=== PATIENT | male | born 1955 | race Caucasian/White ===

== ENCOUNTER 2017-04-25 10:27 | Day surgery (SDC) | payer BC ==
[~2017-04-25] VITALS: Ht 177.8 cm; Wt 97.7 kg
[~2017-04-25 10:27] MED LIST: BUME1TAB21 PO; CARV3.122 PO; DIGO250T PO; HYDR-3240 PO; LISI5TAB7 PO; POTA20TA6 PO; RIVA20TA PO; VERA120T74 PO
[2017-04-25 10:53] VITALS: BP 115/78
[2017-04-25] MEDS ORDERED: SODIUM CHLORIDE 0.9% 1,000 ML IV ONE (11:00)
[2017-04-25] MEDS ORDERED: CARV3.1212 PO (11:01)
[2017-04-25] MEDS ORDERED: SIMV40TA3 PO (11:01)
[2017-04-25] MEDS ORDERED: WARF10TA6 PO (11:01)
[2017-04-25] MEDS ORDERED: PROPOFOL 10 MG/ML, 20ML ONE (12:07)
== END 2017-04-25 13:59 ==
LOC: CACL 10:27
PROVIDERS: ATTEND Internal Medicine Cardiovascular Disease
DX: I34.0 Nonrheumatic mitral (valve) insufficiency (principal); I07.1 Rheumatic tricuspid insufficiency; I48.91 Unspecified atrial fibrillation; I42.9 Cardiomyopathy, unspecified; I47.2 Ventricular tachycardia; I10 Essential (primary) hypertension; Z86.711 Personal history of pulmonary embolism; Z95.810 Presence of automatic (implantable) cardiac defibrillator
CPT/HCPCS: 93312; 93321; 93325; J2704

== ENCOUNTER → 2017-05-28 | Outpatient (CLI) | payer BC ==
[~2017-05-28] MED LIST changes: +CARV3.1212 PO; +REGADENOSON 0.4 MG/5 ML SYRINGE ONE; +SIMV40TA3 PO; +WARF10TA6 PO
== END | disposition home or self-care (01) ==
LOC: CFH 11:27
PROVIDERS: ATTEND Internal Medicine Cardiovascular Disease
DX: R06.02 Shortness of breath (principal); Z95.810 Presence of automatic (implantable) cardiac defibrillator
CPT/HCPCS: 78452; 93017; A9502; J2785

== ENCOUNTER → 2017-07-23 | Outpatient (CLI) | payer BC ==
[~2017-07-23] MED LIST changes: +ATOR40TA78 PO; +LISI1TAB7 PO; +OMNIPAQUE 350 MG/ML, 100ML BOTTLE ONE; -REGADENOSON 0.4 MG/5 ML SYRINGE ONE; +WARF-36 PO; +WARF10TA43 PO; -WARF10TA6 PO; +WARF3TAB52 PO
== END | disposition home or self-care (01) ==
LOC: CFH 12:00
PROVIDERS: ATTEND Thoracic Surgery (Cardiothoracic Vascular Surgery)
DX: Z01.810 Encounter for preprocedural cardiovascular examination (principal); I71.9 Aortic aneurysm of unspecified site, without rupture
CPT/HCPCS: 71275; 82565; Q9967

== ENCOUNTER 2017-08-23 04:36 | Inpatient (IN) | payer BC ==
[2017-08-22 14:17] LABS: MICROSCOPIC NOT IND
[2017-08-22 14:32] LABS: BASOPHILS # (AUTO) 0.05 x10^3/uL (0-0.1); BASOPHILS % (AUTO) 1 % (0-1); EOSINOPHILS # (AUTO) 0.08 x10^3/uL (0-0.4); EOSINOPHILS % (AUTO) 1 % (1-7); LYMPHOCYTES # (AUTO) 2.15 x10^3/uL (1-3.4); LYMPHOCYTES % (AUTO) 32 % (22-44); MD NO; MEAN CORPUSCULAR HEMOGLOBIN 32.1 pg (27.5-34.5); MEAN CORPUSCULAR VOLUME 94.2 fL (81-97); MEAN PLATELET VOLUME 9.6 fL (7.4-10.4); MONOCYTES # (AUTO) 0.63 x10^3/uL (0.2-0.8); MONOCYTES % (AUTO) 10 % (2-9); NEUTROPHILS # (AUTO) 3.76 x10^3/uL (1.8-6.8); NEUTROPHILS % (AUTO) 56 % (42-75); PLATELET COUNT 234 x10^3/uL (130-400); RED BLOOD COUNT 4.73 x10^6/uL (4.38-5.82); RED CELL DISTRIBUTION WIDTH 13.5 % (9.4-14.8)
[2017-08-22 14:34] LABS: INTERNATIONAL NORMALIZED RATIO 1.24 (0.93-1.1); PROTHROMBIN TIME 12.7 Seconds (9.6-11.5)
[2017-08-22 14:36] LABS: ALBUMIN 3.6 g/dL (3.4-5.0); ANION GAP 5 mmol/L (5-15); CALCIUM 8.5 mg/dL (8.5-10.1); CHLORIDE 107 mmol/L (98-107); CREATININE 1.09 mg/dL (0.7-1.3)
[2017-08-22 14:42] LABS: ALANINE AMINOTRANSFERASE 35 U/L (12-78); ALKALINE PHOSPHATASE 69 U/L (45-117); BILIRUBIN,TOTAL 1.1 mg/dL (0.2-1.0)
[~2017-08-23] VITALS: Ht 177.8 cm; Wt 100.8 kg
[~2017-08-23 04:36] MED LIST changes: -OMNIPAQUE 350 MG/ML, 100ML BOTTLE ONE
[2017-08-23] MEDS ORDERED: CHLORHEXIDINE 15 ML BOTTLE MM SCH (05:00)
[2017-08-23] MEDS ORDERED: INSULIN LISPRO 100 UNITS/ML, PEN SQ-INSULIN SCH (05:00)
[2017-08-23 05:49] VITALS: BP_SYST 110; BP_SYST 114; BP_DIAS 73; BP_DIAS 75
[2017-08-23] MEDS: MUPIROCIN OINT 2%, 22GM TP SCH ×2 (05:58→21:00)
[2017-08-23 06:20] VITALS: BP 112/80
[2017-08-23] MEDS ORDERED: MIDAZOLAM 10MG/2 ML ONE (06:39)
[2017-08-23] MEDS ORDERED: SUFentanil 50 MCG/ML, 5ML ONE (06:39)
[2017-08-23] MEDS ORDERED: REGULAR INSULIN 62.5 UNITS in SODIUM CHLORIDE 0.9% 249.375 ML IV PRN ×2 (07:30→12:03)
[2017-08-23] MEDS ORDERED: EPINEPHRINE 2 MG in SODIUM CHLORIDE 0.9% 248 ML IV SCH (07:30)
[2017-08-23] MEDS ORDERED: VANCOMYCIN 1,400 MG in SODIUM CHLORIDE 0.9% 250 ML IV PRN (07:30)
[2017-08-23] MEDS ORDERED: MANNITOL PMX 20% 500 ML IVPB PRN (07:30)
[2017-08-23] MEDS ORDERED: POTASSIUM CHLORIDE 80 MEQ, SODIUM BICARBONATE 8.4% 10 MEQ, MAGNESIUM SULFATE 0.5 GM, LI... IV PRN (07:30)
[2017-08-23] MEDS ORDERED: PHENYLEPHRINE 10 MG in SODIUM CHLORIDE 0.9% 249 ML IV PRN ×2 (07:30→12:03)
[2017-08-23] MEDS ORDERED: DEXMEDETOMIDINE 200 MCG in SODIUM CHLORIDE 0.9% 48 ML IV SCH (07:30)
[2017-08-23] MEDS ORDERED: ALBUMIN HUMAN 5% 500 ML IV PRN (07:30)
[2017-08-23] MEDS ORDERED: CEFUROXIME 1.5 GM in SODIUM CHLORIDE 0.9% 50 ML IVPB PRN (07:30)
[2017-08-23] MEDS: SODIUM CHLORIDE FLUSH 10ML SYR IVF SCH ×3 (09:00→21:08)
[2017-08-23] MEDS ORDERED: PROTAMINE SULFATE 10 MG/ML, 25ML ONE ×2 (09:32)
[2017-08-23] MEDS ORDERED: ROCURONIUM 10MG/ML,5ML ONE ×2 (09:32)
[2017-08-23] MEDS ORDERED: AMINOCAPROIC ACID 250 MG/ML, 20ML ONE ×2 (09:32)
[2017-08-23] MEDS ORDERED: PROPOFOL 10 MG/ML, 20ML ONE (09:32)
[2017-08-23] MEDS ORDERED: MIDAZOLAM 1 MG/ML, 2ML ONE (10:33)
[2017-08-23] MEDS ORDERED: CALCIUM CHLORIDE 10%, 10ML SYR ONE (11:20)
[2017-08-23] MEDS ORDERED: DOBUTAMINE 250 MG in SODIUM CHLORIDE 0.9% 230 ML IV PRN (12:03)
[2017-08-23] MEDS ORDERED: NITROGLYCERIN/D5W PMX 250 ML IV PRN (12:03)
[2017-08-23] MEDS ORDERED: SODIUM CHLORIDE 0.9% 1,000 ML IV PRN (12:03)
[2017-08-23] MEDS ORDERED: VASOPRESSIN 50 UNIT in SODIUM CHLORIDE 0.9% 247.5 ML IV PRN (12:03)
[2017-08-23] MEDS ORDERED: DEXMEDETOMIDINE 200 MCG in SODIUM CHLORIDE 0.9% 48 ML IV PRN (12:03)
[2017-08-23] MEDS ORDERED: HEPARIN 1,000 UNITS/ML, 30ML ONE (12:25)
[2017-08-23] MEDS ORDERED: SODIUM BICARBONATE 1 MEQ/ML, 50ML VIAL ONE (12:25)
[2017-08-23] MEDS ORDERED: LIDOCAINE 2% 100MG/5ML SYRINGE ONE (12:25)
[2017-08-23] MEDS ORDERED: ALBUMIN HUMAN 25% 50 ML ONE (12:26)
[2017-08-23] MEDS ORDERED: PROCHLORPERAZINE 5 MG/ML, 2ML IVPush PRN (12:30)
[2017-08-23] MEDS ORDERED: morphine SULFATE 10 MG/ML, 1ML IVPush PRN (12:30)
[2017-08-23] MEDS ORDERED: BISACODYL 5 MG EC TABLET PO PRN (12:30)
[2017-08-23] MEDS ORDERED: DEXTROSE 4 GM TAB.CHEW PO PRN (12:30)
[2017-08-23] MEDS ORDERED: INSULIN REGULAR 100 UNITS/ML, 3ML VIAL IVPush PRN (12:30)
[2017-08-23] MEDS ORDERED: HYDROcodone/APAP 5/325 TABLET PO PRN (12:30)
[2017-08-23] MEDS ORDERED: SODIUM BICARB 8.4%, 50ML SYRINGE IV PRN (12:30)
[2017-08-23] MEDS ORDERED: MIDAZOLAM 1 MG/ML, 5ML IVPush PRN (12:30)
[2017-08-23] MEDS ORDERED: BISACODYL 10 MG SUPP PR PRN (12:30)
[2017-08-23] MEDS ORDERED: EPINEPHRINE 2 MG in SODIUM CHLORIDE 0.9% 248 ML IV PRN (12:30)
[2017-08-23] MEDS ORDERED: GLUCAGON 1 MG IM PRN (12:30)
[2017-08-23] MEDS ORDERED: ACETAMINOPHEN 650 MG SUPP PR PRN (12:30)
[2017-08-23] MEDS ORDERED: DEXTROSE 50%, 50ML SYRINGE IVPush PRN (12:30)
[2017-08-23 12:37] LABS: GLUCOSE BY BLOOD GAS ANALYZER 129 mg/dL (70-110); HEMOGLOBIN BY BLOOD GAS ANALYZ 12.1 g/dL (14.0-18.0); POTASSIUM BY BLOOD GAS ANALYZR 3.3 mmol/L (3.6-5.5)
[2017-08-23] MEDS: KSCALE TO 4.5 IV SCH ×2 (12:45→18:30)
[2017-08-23 13:12] LABS: INTERNATIONAL NORMALIZED RATIO 1.31 (0.93-1.1); PROTHROMBIN TIME 13.4 Seconds (9.6-11.5)
[2017-08-23] MEDS: MAGNESIUM SULFATE 1 GM in SODIUM CHLORIDE 0.9% 50 ML IVPB SCH (13:58)
[2017-08-23] MEDS ORDERED: POTASSIUM CHLORIDE 30 MEQ in SODIUM CHLORIDE 0.9% 100 ML IV ONE (14:30)
[2017-08-23] MEDS: LACTATED RINGERS 1,000 ML IV PRN ×2 (15:57→17:46)
[2017-08-23] MEDS: INSULIN LISPRO 100 UNITS/ML, PEN SQ-INSULIN SCH ×2 (16:00→21:00)
[2017-08-23] MEDS: OXYcodone IR 5MG TABLET PO PRN ×2 (18:22→22:28)
[2017-08-23] MEDS: CEFUROXIME 1.5 GM in SODIUM CHLORIDE 0.9% 50 ML IVPB SCH (18:47)
[2017-08-23] MEDS: VANCOMYCIN 1,400 MG in SODIUM CHLORIDE 0.9% 250 ML IVPB SCH (20:10)
[2017-08-23] MEDS: MUPIROCIN OINT 2%, 22GM NAS SCH (21:12)
[2017-08-24] MEDS: KSCALE TO 4.5 IV SCH ×2 (00:30→06:30)
[2017-08-24] MEDS: OXYcodone IR 5MG TABLET PO PRN ×7 (02:12→21:44)
[2017-08-24 04:00] VITALS: BP 111/52
[2017-08-24 06:00] LABS: ALBUMIN 2.6 g/dL (3.4-5.0); ANION GAP 9 mmol/L (5-15); CALCIUM 7.6 mg/dL (8.5-10.1); CHLORIDE 114 mmol/L (98-107); CREATININE 0.86 mg/dL (0.7-1.3); INTERNATIONAL NORMALIZED RATIO 1.1 (0.93-1.1); PROTHROMBIN TIME 11.3 Seconds (9.6-11.5)
[2017-08-24 06:01] LABS: BASOPHILS # (AUTO) 0.01 x10^3/uL (0-0.1); BASOPHILS % (AUTO) 0 % (0-1); EOSINOPHILS % (AUTO) 0 % (1-7); LYMPHOCYTES # (AUTO) 0.71 x10^3/uL (1-3.4); LYMPHOCYTES % (AUTO) 6 % (22-44); MD NO; MEAN CORPUSCULAR HEMOGLOBIN 32.4 pg (27.5-34.5); MEAN CORPUSCULAR HGB CONC 33.7 g/dL (33.2-36.2); MEAN CORPUSCULAR VOLUME 96.2 fL (81-97); MONOCYTES # (AUTO) 0.98 x10^3/uL (0.2-0.8); MONOCYTES % (AUTO) 8 % (2-9); NEUTROPHILS # (AUTO) 11.32 x10^3/uL (1.8-6.8); NEUTROPHILS % (AUTO) 87 % (42-75); PLATELET COUNT 161 x10^3/uL (130-400)
[2017-08-24] MEDS: CEFUROXIME 1.5 GM in SODIUM CHLORIDE 0.9% 50 ML IVPB SCH (06:56)
[2017-08-24] MEDS: INSULIN LISPRO 100 UNITS/ML, PEN SQ-INSULIN SCH ×4 (06:57→20:47)
[2017-08-24] MEDS: MUPIROCIN OINT 2%, 22GM TP SCH (08:22)
[2017-08-24] MEDS: MUPIROCIN OINT 2%, 22GM NAS SCH ×2 (08:23→21:38)
[2017-08-24] MEDS: SODIUM CHLORIDE FLUSH 10ML SYR IVF SCH ×4 (09:00→21:40)
[2017-08-24] MEDS: VANCOMYCIN 1,400 MG in SODIUM CHLORIDE 0.9% 250 ML IVPB SCH (09:27)
[2017-08-24] MEDS: ASPIRIN 81 MG TABLET EC PO SCH (09:56)
[2017-08-24] MEDS: WARFARIN BIOPROSTHETIC VALVE PROTOCOL 2-3 XX SCH (09:57)
[2017-08-24] MEDS: CHLORHEXIDINE 15 ML BOTTLE MM SCH ×2 (12:43→21:39)
[2017-08-24] MEDS: MAGNESIUM SULFATE 1 GM in SODIUM CHLORIDE 0.9% 50 ML IVPB SCH (12:44)
[2017-08-24] MEDS ORDERED: WARFARIN 5 MG TABLET PO-COUM SCH (18:00)
[2017-08-24] MEDS: HYDROcodone/APAP 10/325 MG TABLET PO PRN (19:34)
[2017-08-24 19:59] VITALS: BP 108/71
[2017-08-24] MEDS: MELATONIN 5 MG TABLET PO PRN (21:43)
[2017-08-25] MEDS: HYDROcodone/APAP 10/325 MG TABLET PO PRN ×4 (01:28→18:49)
[2017-08-25 01:34] VITALS: BP 137/84
[2017-08-25] MEDS: FENTANYL PF 100 MCG/2ML IVPush PRN ×2 (02:04→08:22)
[2017-08-25] MEDS: OXYcodone IR 5MG TABLET PO PRN ×5 (04:32→20:04)
[2017-08-25 04:48] LABS: INTERNATIONAL NORMALIZED RATIO 1.16 (0.93-1.1); PROTHROMBIN TIME 11.9 Seconds (9.6-11.5)
[2017-08-25 04:50] LABS: ANION GAP 7 mmol/L (5-15); CALCIUM 8.1 mg/dL (8.5-10.1); CHLORIDE 107 mmol/L (98-107); CREATININE 0.79 mg/dL (0.7-1.3)
[2017-08-25 04:54] LABS: MEAN CORPUSCULAR HEMOGLOBIN 31.9 pg (27.5-34.5); MEAN CORPUSCULAR HGB CONC 33.7 g/dL (33.2-36.2); MEAN CORPUSCULAR VOLUME 94.8 fL (81-97); MEAN PLATELET VOLUME 9.7 fL (7.4-10.4); PLATELET COUNT 144 x10^3/uL (130-400); RED BLOOD COUNT 3.23 x10^6/uL (4.38-5.82); RED CELL DISTRIBUTION WIDTH 13.5 % (9.4-14.8)
[2017-08-25] MEDS: INSULIN LISPRO 100 UNITS/ML, PEN SQ-INSULIN SCH ×4 (05:36→21:25)
[2017-08-25 05:48] LABS: BASOPHILS # (AUTO) 0.07 x10^3/uL (0-0.1); BASOPHILS % (AUTO) 1 % (0-1); EOSINOPHILS # (AUTO) 0.01 x10^3/uL (0-0.4); EOSINOPHILS % (AUTO) 0 % (1-7); LYMPHOCYTES # (AUTO) 1.45 x10^3/uL (1-3.4); LYMPHOCYTES % (AUTO) 11 % (22-44); MD SCAN; MONOCYTES # (AUTO) 1.53 x10^3/uL (0.2-0.8); MONOCYTES % (AUTO) 12 % (2-9); NEUTROPHILS # (AUTO) 10.05 x10^3/uL (1.8-6.8); NEUTROPHILS % (AUTO) 77 % (42-75)
[2017-08-25 07:34] VITALS: BP 116/76
[2017-08-25] MEDS: MUPIROCIN OINT 2%, 22GM NAS SCH ×2 (08:23→21:24)
[2017-08-25] MEDS: CHLORHEXIDINE 15 ML BOTTLE MM SCH ×2 (08:23→21:23)
[2017-08-25] MEDS: SODIUM CHLORIDE FLUSH 10ML SYR IVF SCH ×4 (08:23→21:25)
[2017-08-25] MEDS: ASPIRIN 81 MG TABLET EC PO SCH (08:35)
[2017-08-25] MEDS: WARFARIN BIOPROSTHETIC VALVE PROTOCOL 2-3 XX SCH (09:00)
[2017-08-25] MEDS: MAGNESIUM SULFATE 1 GM in SODIUM CHLORIDE 0.9% 50 ML IVPB SCH (12:52)
[2017-08-25 14:03] VITALS: BP 98/57
[2017-08-25 15:20] VITALS: BP 109/62
[2017-08-25] MEDS: ACETAMINOPHEN 325 MG TABLET PO PRN (15:40)
[2017-08-25] MEDS ORDERED: WARFARIN 7.5 MG TABLET PO-COUM SCH (18:00)
[2017-08-25] MEDS ORDERED: SENNA/DOCUSATE TABLET ONE (18:47)
[2017-08-25] MEDS ORDERED: SENNA/DOCUSATE TABLET PO PRN (19:00)
[2017-08-25 20:59] VITALS: BP 106/69
[2017-08-25] MEDS: MELATONIN 5 MG TABLET PO PRN (21:24)
[2017-08-25] MEDS: ONDANSETRON 2MG/ML, 2ML IVPush PRN (21:32)
[2017-08-26] MEDS: OXYcodone IR 5MG TABLET PO PRN ×7 (00:35→21:23)
[2017-08-26 00:46] VITALS: BP 122/71
[2017-08-26 05:38] LABS: INTERNATIONAL NORMALIZED RATIO 1.23 (0.93-1.1); PROTHROMBIN TIME 12.6 Seconds (9.6-11.5)
[2017-08-26 05:42] LABS: BASOPHILS # (AUTO) 0.03 x10^3/uL (0-0.1); BASOPHILS % (AUTO) 0 % (0-1); EOSINOPHILS # (AUTO) 0.02 x10^3/uL (0-0.4); EOSINOPHILS % (AUTO) 0 % (1-7); LYMPHOCYTES # (AUTO) 1.17 x10^3/uL (1-3.4); LYMPHOCYTES % (AUTO) 13 % (22-44); MD NO; MEAN CORPUSCULAR HEMOGLOBIN 32.3 pg (27.5-34.5); MEAN CORPUSCULAR HGB CONC 33.9 g/dL (33.2-36.2); MEAN CORPUSCULAR VOLUME 95.4 fL (81-97); MEAN PLATELET VOLUME 9.4 fL (7.4-10.4); MONOCYTES # (AUTO) 1.15 x10^3/uL (0.2-0.8); MONOCYTES % (AUTO) 12 % (2-9); NEUTROPHILS # (AUTO) 6.92 x10^3/uL (1.8-6.8); NEUTROPHILS % (AUTO) 74 % (42-75); PLATELET COUNT 151 x10^3/uL (130-400); RED BLOOD COUNT 3.17 x10^6/uL (4.38-5.82); RED CELL DISTRIBUTION WIDTH 13.7 % (9.4-14.8)
[2017-08-26 05:49] LABS: CHLORIDE 105 mmol/L (98-107)
[2017-08-26 06:04] LABS: ANION GAP 8 mmol/L (5-15); CALCIUM 8.4 mg/dL (8.5-10.1); CREATININE 0.74 mg/dL (0.7-1.3)
[2017-08-26 06:57] VITALS: BP 106/70
[2017-08-26] MEDS: ACETAMINOPHEN 325 MG TABLET PO PRN ×2 (07:48→14:20)
[2017-08-26] MEDS: INSULIN LISPRO 100 UNITS/ML, PEN SQ-INSULIN SCH ×2 (07:49→11:52)
[2017-08-26] MEDS: WARFARIN BIOPROSTHETIC VALVE PROTOCOL 2-3 XX SCH (09:00)
[2017-08-26] MEDS: MUPIROCIN OINT 2%, 22GM NAS SCH ×2 (11:53→21:24)
[2017-08-26] MEDS: ASPIRIN 81 MG TABLET EC PO SCH (11:53)
[2017-08-26] MEDS: SODIUM CHLORIDE FLUSH 10ML SYR IVF SCH ×2 (11:54→21:23)
[2017-08-26 15:14] VITALS: BP 98/61
[2017-08-26] MEDS ORDERED: WARFARIN 7.5 MG TABLET PO-COUM ONE (18:00)
[2017-08-26 20:58] VITALS: BP 116/69
[2017-08-26] MEDS: ONDANSETRON 2MG/ML, 2ML IVPush PRN (21:26)
[2017-08-26] MEDS: MELATONIN 5 MG TABLET PO PRN (21:26)
[2017-08-27] MEDS: OXYcodone IR 5MG TABLET PO PRN ×5 (00:46→14:47)
[2017-08-27 02:20] VITALS: BP 97/61
[2017-08-27 06:10] LABS: ANION GAP 8 mmol/L (5-15); CHLORIDE 103 mmol/L (98-107)
[2017-08-27 06:11] LABS: CREATININE 0.77 mg/dL (0.7-1.3)
[2017-08-27 06:32] LABS: INTERNATIONAL NORMALIZED RATIO 1.34 (0.93-1.1); PROTHROMBIN TIME 13.7 Seconds (9.6-11.5)
[2017-08-27 06:44] VITALS: BP 106/70
[2017-08-27 06:52] LABS: BASOPHILS # (AUTO) 0.05 x10^3/uL (0-0.1); BASOPHILS % (AUTO) 1 % (0-1); EOSINOPHILS # (AUTO) 0.14 x10^3/uL (0-0.4); EOSINOPHILS % (AUTO) 2 % (1-7); LYMPHOCYTES # (AUTO) 1.65 x10^3/uL (1-3.4); LYMPHOCYTES % (AUTO) 19 % (22-44); MD SCAN; MEAN CORPUSCULAR HEMOGLOBIN 32.4 pg (27.5-34.5); MEAN CORPUSCULAR HGB CONC 33.7 g/dL (33.2-36.2); MEAN CORPUSCULAR VOLUME 96.2 fL (81-97); MEAN PLATELET VOLUME 9.6 fL (7.4-10.4); MONOCYTES # (AUTO) 1.05 x10^3/uL (0.2-0.8); MONOCYTES % (AUTO) 12 % (2-9); NEUTROPHILS # (AUTO) 5.84 x10^3/uL (1.8-6.8); NEUTROPHILS % (AUTO) 67 % (42-75); PLATELET COUNT 184 x10^3/uL (130-400); RED BLOOD COUNT 3.05 x10^6/uL (4.38-5.82); RED CELL DISTRIBUTION WIDTH 13.7 % (9.4-14.8)
[2017-08-27] MEDS: ASPIRIN 81 MG TABLET EC PO SCH (08:08)
[2017-08-27] MEDS: MUPIROCIN OINT 2%, 22GM NAS SCH (08:09)
[2017-08-27] MEDS: SODIUM CHLORIDE FLUSH 10ML SYR IVF SCH (08:09)
[2017-08-27] MEDS: WARFARIN BIOPROSTHETIC VALVE PROTOCOL 2-3 XX SCH (08:09)
[2017-08-27] MEDS: HYDROcodone/APAP 10/325 MG TABLET PO PRN ×2 (09:35→13:43)
[2017-08-27 12:04] VITALS: BP 117/80
[2017-08-27] MEDS ORDERED: MELA5TAB19 PO (13:03)
[2017-08-27] MEDS ORDERED: OXYC5TAB3 PO (13:03)
[2017-08-27] MEDS ORDERED: ASPI-621 PO (13:03)
[2017-08-27] MEDS ORDERED: WARF10TA PO-COUM (13:03)
[2017-08-27] MEDS ORDERED: WARFARIN 10 MG TABLET PO-COUM ONE ×2 (15:43→18:00)
== END 2017-08-27 16:00 | disposition home health service (06) | DRG 220 ==
LOC: 5SO 04:36 → CCU 07:42 → 5SO 08-24 18:18 → DCLOUNGE 08-27 15:49
PROVIDERS: ADMIT Thoracic Surgery (Cardiothoracic Vascular Surgery); ATTEND Thoracic Surgery (Cardiothoracic Vascular Surgery)
PROC: 02UG08Z Supplement Mitral Valve with Zooplastic Tissue, Open Approach (ICD-10-PCS; 2017-08-23)
PROC: 02580ZZ Destruction of Conduction Mechanism, Open Approach (ICD-10-PCS; 2017-08-23)
PROC: 5A1221Z Performance of Cardiac Output, Continuous (ICD-10-PCS; 2017-08-23)
PROC: 02B70ZK Excision of Left Atrial Appendage, Open Approach (ICD-10-PCS; 2017-08-23)
PROC: B24BZZ4 Ultrasonography of Heart with Aorta, Transesophageal (ICD-10-PCS; principal; 2017-08-23 07:30)
DX: I08.1 Rheumatic disorders of both mitral and tricuspid valves (principal); I50.20 Unspecified systolic (congestive) heart failure; I42.9 Cardiomyopathy, unspecified; I11.0 Hypertensive heart disease with heart failure; E78.5 Hyperlipidemia, unspecified; R06.89 Other abnormalities of breathing; I48.91 Unspecified atrial fibrillation; I95.9 Hypotension, unspecified; Z51.5 Encounter for palliative care; Z86.711 Personal history of pulmonary embolism; Z86.73 Personal history of transient ischemic attack (TIA), and cerebral infarction without residual deficits; Z90.81 Acquired absence of spleen; Z87.891 Personal history of nicotine dependence; Z95.810 Presence of automatic (implantable) cardiac defibrillator
CPT/HCPCS: 36415; 36600; 71045; 71046; 80048; 80053; 81003; 82040; 82330; 82800; 82803; 82810; 82947; 82962; 83036; 83735; 84132; 84295; 85014; 85018; 85025; 85049; 85347; 85610; 85730; 86850; 86900; 86923; 87081; 88305; 93005; 93312; 93321; 93325; 93880; 94002; J0697; J1644; J1815; J2250; J2405; J2704; J2720; J3010; J3370; J3475; J3480; J3490; P9045; P9047; C1751; C1760; C1762; C2618; J0171; J0780; J2370; J7050; J7120

== ENCOUNTER → 2018-02-25 | Outpatient (CLI) | payer BC ==
[~2018-02-25] MED LIST changes: +ASPI81TA45 PO; +MELA5TAB19 PO; +OXYC5TAB3 PO; +WARF10TA PO-COUM
== END | disposition home or self-care (01) ==
LOC: CFH 11:04
PROVIDERS: ATTEND Internal Medicine Cardiovascular Disease
DX: I37.1 Nonrheumatic pulmonary valve insufficiency (principal); I42.9 Cardiomyopathy, unspecified; I10 Essential (primary) hypertension; E78.5 Hyperlipidemia, unspecified; I48.91 Unspecified atrial fibrillation; Z87.891 Personal history of nicotine dependence; Z95.0 Presence of cardiac pacemaker
CPT/HCPCS: 93306